=== PATIENT | female | born 1975 | race Caucasian/White ===

== ENCOUNTER 2024-10-20 21:42 | Emergency (ER) | payer OTHER ==
[~2024-10-20] VITALS: Ht 162.6 cm; Wt 64.9 kg
[2024-10-20 22:29] VITALS: TEMP 98.1
[2024-10-20] MEDS ORDERED: IBUPROFEN 400 MG TABLET ONE (22:51)
[2024-10-20] MEDS: IBUPROFEN 400 MG TABLET PO ONE (23:07)
[2024-10-20 23:08] VITALS: BP 128/85; O2SAT 99
== END 2024-10-20 23:06 | disposition home or self-care (01) ==
LOC: ER 21:48
DX: H93.11 Tinnitus, right ear (principal); R51.9 Headache, unspecified
CPT/HCPCS: 70450-TC